=== PATIENT | female | born 1985 | race Caucasian/White ===

== ENCOUNTER 2023-12-27 19:28 | Emergency (ER) | payer SELFPAY ==
[2023-12-27 19:37] VITALS: BP 134/84; PULSE 127; RESP 16; TEMP 37.4; O2SAT 100; BMI 22.3
[2023-12-27 20:10] LABS: Strep Grp A by PCR Rapid Positive (Negative)
--- NOTE | 2023-12-27 21:41 | ED.NECK ---
HPI - Neck Pain/Injury General Chief Complaint: Neck Pain/Injury Stated Complaint: difficulty swallowing, states swolen glands Time Seen by Provider: 12/27/23 21:03 Mode of arrival: Ambulatory History of Present Illness HPI Narrative: 4-5 days of sore throat, now having difficulty swallowing due to pain. Denies fevers. Concern for strep throat. Related Data Previous Rx's Medication Instructions Recorded amoxicillin 500 mg capsule 500 mg PO Q12H #20 caps 12/27/23 Allergies Allergy/AdvReac Type Severity Reaction Status Date / Time No Known Drug Allergies Allergy Verified 12/27/23 21:43 Patient History Social History Smoking Status: Never smoker Smoking Status: Never smoker Substance Use Type: does not use Exam Initial Vital Signs Initial Vital Signs: Vital Signs Temperature 99.3 F 12/27/23 19:37 Pulse Rate 127 H 12/27/23 19:37 Respiratory Rate 16 12/27/23 19:37 Blood Pressure 134/84 12/27/23 19:37 Pulse Oximetry 100 12/27/23 19:37 Oxygen Delivery Method Room Air 12/27/23 19:37 Const: Awake, alert, no acute distress, nontoxic appearing ENT: Bilateral tonsillar erythema with trace edema, scant exudates, no uvular deviation, no abscess Skin: Warm, Dry, intact, no rashes Neuro: AO x3, CN II-XII grossly intact, moves all extremities Course Orders Ordered: ED Orders 12/27/23 19:49 Strep Grp A by PCR Rapid Stat Throat Culture Stat Discontinued Medications Amoxicillin (Amoxicillin 250 Mg Capsule) 500 mg PO NOW ONE Stop: 12/27/23 21:41 Last Admin: 12/27/23 21:48 Dose: 500 mg Documented By: HALIMA Dexamethasone (Dexamethasone 10 Mg/Ml Vial) 10 mg PO NOW ONE Stop: 12/27/23 21:41 Last Admin: 12/27/23 21:48 Dose: 10 mg Documented By: HALIMA Vital Signs Vital signs: Vital Signs - 8 hr 12/27/23 21:55 Pulse Rate 96 H Respiratory Rate 17 Blood Pressure 129/80 Pulse Oximetry 99 Oxygen Delivery Method Room Air MDM - Neck Pain/Injury Differential Diagnosis Differential diagnosis: Likely disc disorder of cervical region, whiplash injury to neck and closed subluxation of cervical spine Lab Data Labs: Lab Results 12/27/23 Range/Units 19:49 Group A Strep (PCR) Positive H (Negative) MDM Narrative Medical decision making narrative: Sore throat, tested positive for strep. Given Decadron, antibiotics sent to pharmacy of choice. Discharge Plan Departure Patient Disposition: Home Clinical Impression: Acute streptococcal pharyngitis Instructions: DI for Strep Throat Activity Restrictions/Additional Instructions: Take Tylenol and ibuprofen as needed for pain. You can use saltwater gargles for comfort. Finish all of the antibiotics as prescribed. Prescriptions: New amoxicillin 500 mg capsule 500 mg PO Q12H Qty: 20 0RF Stand Alone Forms: Patient Portal/API
[2023-12-27] MEDS: DEXAMETHASONE 10 MG/ML VIAL PO (21:48)
[2023-12-27] MEDS: AMOXICILLIN 250 MG CAPSULE 500 MG PO (21:48)
[2023-12-27 21:55] VITALS: BP 129/80; PULSE 96; RESP 17; O2SAT 99
== END 2023-12-27 21:56 | disposition home or self-care (01) ==
PROVIDERS: Emergency Provider Emergency Medicine
DX: J02.0 Streptococcal pharyngitis (principal)
CPT/HCPCS: 87070; 87077; 87147; 87651; 99283; J1100